=== PATIENT | male | born 1950 | race Caucasian/White ===

== ENCOUNTER 2023-10-18 14:21 | Outpatient (AMB) | payer MEDICARE, SELFPAY ==
--- NOTE | 2023-10-18 14:27 | HO.NEPHOV_ITS ---
HPI HPI Comments History of Present Illness Details Justin was seen in follow-up of his chronic kidney disease and hypertension. He has not had any gout exacerbations. He does not have any nausea, vomiting or diarrhea, chest pain, shortness of breath, proximal noc turnal dyspnea, orthopnea, hematuria or pedal edema. He does not take any excessive nonsteroidal anti-inflammatory medications. His blood pressure has been at goal. He does not have any new active complaints at the time of this office visit. His renal functions have been stable. [facility] Medical History (Updated 10/31/23 @ 22:17 by Dewayne Aguilera MD) Gout Hypertension Chronic kidney disease, stage 3a Surgical History (Updated 10/18/23 @ 14:34 by Shelia Harrison MA) Hx of cholecystectomy Family History Father Liver cancer Social History (Updated 10/18/23 @ 14:34 by Shelia Harrison MA) Alcohol intake: current Comment: Socially Patient Tobacco Use Status: Former Tobacco user Vital Signs 10/18/23 14:28 Height 6 ft 3 in Weight 247 lb 4 oz BMI 30.9 BP 130/80 Blood Pressure Location Lt brachial Position Sitting Pulse 59 Pulse Source Pulse Oximeter Pulse Oximetry (%) 98 Oxygen Delivery Method Room Air Physical Exam Vital Signs: Last Vital Signs Pulse 59 10/18/23 14:28 BP 130/80 10/18/23 14:28 Pulse Ox 98 10/18/23 14:28 Oxygen Delivery Method Room Air 10/18/23 14:28 BMI result Body Mass Index 30.9 Const General: comfortable and no acute distress Orientation/consciousness: patient oriented x3 HEENT Head: Yes normocephalic Mouth: Normal oral and palatal mucosa present Eyes EOM: EOMs intact bilaterally Neck Neck: Yes supple Resp Auscultation: clear to auscultation bilaterally Cardio Jugular venous distension: no JVD Rate: regular rate GI Palpation (GI): Soft to palpation Auscultation: normal bowel sounds General: Yes no CVA tenderness Back/Spine/Pelvis Back: no CVA tenderness Skin General skin exam: no rashes or lesions noted Neuro General: patient oriented x3 and moves all extremities Extrem General: Yes no pedal edema Assessment & Plan Assessment & Plan (1) CKD (chronic kidney disease) stage 3, GFR 30-59 ml/min: Code(s): N18.30 - Chronic kidney disease, stage 3 unspecified Qualifiers: Chronic kidney disease stage 3 subtype: stage 3a (GFR 45-59) Qualified Code(s): N18.31 - Chronic kidney disease, stage 3a (2) Hypertension: Code(s): I10 - Essential (primary) hypertension Qualifiers: Hypertension type: primary hypertension Qualified Code(s): I10 - Essential (primary) hypertension Plan Justin has mild CKD most likely due to ATN in the past. He is not taking any nonsteroidal anti-inflammatories. He is on NIKKI-inhibitor. His renal functions have been stable. His blood pressure has been at goal. He tries to avoid nonsteroidal anti-inflammatories. He maintains good hydration. I did not make any medication changes today. All questions answered. Follow-up blood work ordered and follow-up given Orders: Orders Electrolytes 10/18/23 N18.30 - Chronic kidney disease, stage 3 unspecified Uric Acid 10/18/23 N18.30 - Chronic kidney disease, stage 3 unspecified Blood Urea Nitrogen 10/18/23 N18.30 - Chronic kidney disease, stage 3 unspecified Creatinine 10/18/23 N18.30 - Chronic kidney disease, stage 3 unspecified Coding Level of Care Code Est Pt Level 3 (28902) Diagnoses Stage 3a chronic kidney disease N18.31 Chronic kidney disease stage 3 subtype: stage 3a (GFR 45-59) Primary hypertension I10 Hypertension type: primary hypertension Results Reviewed Nephrology Results: No Data to Display
[2023-10-18 14:28] VITALS: BP 130/80; PULSE 59; O2SAT 98; BMI 30.9
== END 2023-10-18 15:03 | disposition home or self-care (01) ==
PROVIDERS: PCP Internal Medicine; Visit Provider Internal Medicine Nephrology
DX: N18.31 Chronic kidney disease, stage 3a (principal); I10 Essential (primary) hypertension
CPT/HCPCS: 99213

== ENCOUNTER → 2023-10-18 14:21 | Outpatient (BNVA) | payer MEDICARE, SELFPAY | PROVIDERS: PCP Internal Medicine; Visit Provider Internal Medicine Nephrology | DX: I12.9 Hypertensive chronic kidney disease with stage 1 through stage 4 chronic kidney disease, or unspecified chronic kidney disease (principal); N18.31 Chronic kidney disease, stage 3a | CPT/HCPCS: 99212 ==

== ENCOUNTER 2024-07-24 14:16 | Outpatient (REF) | payer MEDICARE, SELFPAY ==
[2024-07-24 17:33] LABS: Appearance Urine Clear; Color Urine Yellow; Glucose Urine UA Negative (Negative); Leukocyte Esterase Urine Negative (Negative); Nitrite Urine Negative (Negative); Urine Blood Negative (Negative); Urine Ketones Negative (Negative); Urine Protein Negative (Neg-Trace)
[2024-07-24 17:48] LABS: MANUAL DIFF FLAG NO
[2024-07-24 18:04] LABS: Basophils Absolute Auto 0.1 X10*3/uL (0.0-0.2); Basophils Percent Auto 1.4 % (0-2); Eosinophils Absolute Auto 0.1 X10*3/uL (0.0-0.4); Hematocrit 45.9 % (42.0-52.0); Hemoglobin 15.7 g/dl (14.0-18.0); Imm Gran Abs Auto 0.01 X10*3/uL (0.00-0.03); Imm Gran Pct Auto 0.2 % (0.0-0.4); Lymphocytes Absolute Auto 0.9 X10*3/uL (1.2-4.9); Lymphocytes Percent Auto 21.7 % (20-40); Mean Corpuscular HGB Conc 34.2 g/dl (31.0-36.0); Mean Corpuscular Volume 93.7 fL (80.0-98.0); Mean Platelet Volume 11.6 fL (9.4-12.4); Monocytes Absolute Auto 0.5 X10*3/uL (0.1-1.2); Neutrophils Absolute Auto 2.7 x10*3/uL (2.0-8.3); Neutrophils Percent Auto 61.7 % (45-73); Platelet Count 143 X10*3/uL (160-400); Red Cell Distribution Width 13.2 % (11.0-16.0); White Blood Count 4.3 X10*3/uL (4.8-10.8)
[2024-07-24 18:33] LABS: Anion Gap 11 (12-20); Blood Urea Nitrogen 17 mg/dL (9-16); Calcium 9.4 mg/dL (8.4-10.2); Carbon Dioxide 27 mmol/L (22-29); Chloride 106 mmol/L (96-108); Estimated Glomerular Filt Rate > 60; Potassium 4.6 mmol/L (3.3-5.1); Sodium 139 mmol/L (135-145); Uric Acid 5.7 mg/dL (3.4-7.0)
[2024-07-24 18:51] LABS: Creatinine Urine 61.57 mg/dL; Total Protein Urine Random < 7 mg/dL (<12)
== END 2024-07-24 14:17 | disposition home or self-care (01) ==
LOC: HO.HKASLDS 14:16
PROVIDERS: Visit Provider Internal Medicine Nephrology
DX: N18.30 Chronic kidney disease, stage 3 unspecified (principal)
CPT/HCPCS: 36415; 80051; 81003; 82310; 82565; 82570; 84156; 84520; 84550; 85025

== ENCOUNTER 2024-07-26 13:19 | Outpatient (AMB) | payer MEDICARE, SELFPAY ==
--- NOTE | 2024-07-26 13:22 | HO.NEPHOV ---
Vital Signs 07/26/24 13:36 Height 6 ft 3 in Weight 244 lb BMI 30.5 BP 120/68 Blood Pressure Location Lt brachial Position Sitting Pulse 61 Pulse Source Pulse Oximeter Pulse Oximetry (%) 96 Oxygen Delivery Method Room Air Intake Visit Reasons: 8M follow up- LVM Mortgage Servicing Specialist Required: No Accompanied by: Self / Same As Patient Allergies No Known Allergies Allergy (Verified 07/26/24 13:37) HPI Comments Details: Justin was seen in follow-up of his chronic kidney disease and hypertension. He has not had any gout exacerbations. He does not have any nausea, vomiting or diarrhea, chest pain, shortness of breath, proximal nocturnal dyspnea, orthopnea, hematuria or pedal edema. He does not take any excessive nonsteroidal anti-inflammatory medications. His blood pressure has been at goal. He does not have any new active complaints at the time of this office visit. He has B/L hearing aids now. His renal functions have been stable. [facility] Medical History (Updated 10/31/23 @ 22:17 by Dewanye Aguilera MD) Gout Hypertension Chronic kidney disease, stage 3a Surgical History Hx of cholecystectomy Family History Father Liver cancer Social History Alcohol intake: current Comment: Socially Patient Tobacco Use Status: Former Tobacco user Review of Systems Const All systems reviewed & are unremarkable except as noted in HPI and below Physical Exam Vital Signs: Last Vital Signs Pulse 61 07/26/24 13:36 BP 120/68 07/26/24 13:36 Pulse Ox 96 07/26/24 13:36 Oxygen Delivery Method Room Air 07/26/24 13:36 BMI result Body Mass Index 30.5 Const General: comfortable and no acute distress Orientation/consciousness: patient oriented x3 HEENT Head: Yes normocephalic Mouth: Normal oral and palatal mucosa present Neck Neck: Yes supple Resp Auscultation: clear to auscultation bilaterally Cardio Jugular venous distension: no JVD Rate: regular rate GI Palpation (GI): Soft to palpation Auscultation: normal bowel sounds General: Yes no CVA tenderness Back/Spine/Pelvis Back: no CVA tenderness Skin General skin exam: no rashes or lesions noted Neuro General: patient oriented x3 and moves all extremities Extrem General: Yes no pedal edema Results Reviewed Nephrology Results: Hgb 15.7 g/dl (14.0-18.0) 07/24/24 WBC 4.3 X10*3/uL (4.8-10.8) L 07/24/24 Plt Count 143 X10*3/uL (160-400) L 07/24/24 Sodium 139 mmol/L (135-145) 07/24/24 Potassium 4.6 mmol/L (3.3-5.1) 07/24/24 Chloride 106 mmol/L (96-108) 07/24/24 Carbon Dioxide 27 mmol/L (22-29) 07/24/24 BUN 17 mg/dL (9-16) H 07/24/24 Creatinine 1.11 mg/dL (0.5-1.4) 07/24/24 Calcium 9.4 mg/dL (8.4-10.2) 07/24/24 Urine Protein Negative mg/dL (Neg-Trace) 07/24/24 Urine Creatinine 61.57 mg/dL 07/24/24 Protein/Creatinin Ratio TNP 07/24/24 Assessment & Plan Assessment & Plan (1) CKD (chronic kidney disease) stage 3, GFR 30-59 ml/min: Code(s): N18.30 - Chronic kidney disease, stage 3 unspecified Category: Medical Qualifiers: Chronic kidney disease stage 3 subtype: stage 3a (GFR 45-59) Qualified Code(s): N18.31 - Chronic kidney disease, stage 3a (2) Hypertension: Code(s): I10 - Essential (primary) hypertension Category: Medical Qualifiers: Hypertension type: primary hypertension Qualified Code(s): I10 - Essential (primary) hypertension Plan Justin has mild CKD most likely due to ATN in the past. He is not taking any nonsteroidal anti-inflammatories. He is on NIKKI-inhibitor. His renal functions have been stable. His blood pressure has been at goal. He tries to avoid nonsteroidal anti-inflammatories. He maintains good hydration. I did not make any medication changes today. All questions answered. Follow-up blood work ordered including uric acid and follow-up appointment given in 6 months Orders: Orders Uric Acid 1 Year I10 - Essential (primary) hypertension, N18.31 - Chronic kidney disease, stage 3a Creatinine 1 Year I10 - Essential (primary) hypertension, N18.31 - Chronic kidney disease, stage 3a Blood Urea Nitrogen 1 Year I10 - Essential (primary) hypertension, N18.31 - Chronic kidney disease, stage 3a Electrolytes 1 Year I10 - Essential (primary) hypertension, N18.31 - Chronic kidney disease, stage 3a Coding Level of Care Code Est Pt Level 4 (29721) Diagnoses Stage 3a chronic kidney disease N18.31 Chronic kidney disease stage 3 subtype: stage 3a (GFR 45-59) Primary hypertension I10 Hypertension type: primary hypertension
[2024-07-26 13:36] VITALS: BP 120/68; PULSE 61; O2SAT 96; BMI 30.5
== END 2024-07-26 13:50 | disposition home or self-care (01) ==
PROVIDERS: PCP Internal Medicine; Visit Provider Internal Medicine Nephrology
DX: N18.31 Chronic kidney disease, stage 3a (principal); I10 Essential (primary) hypertension
CPT/HCPCS: 99214

== ENCOUNTER → 2024-07-26 13:19 | Outpatient (BNVA) | payer MEDICARE, SELFPAY | PROVIDERS: PCP Internal Medicine; Visit Provider Internal Medicine Nephrology | DX: I12.9 Hypertensive chronic kidney disease with stage 1 through stage 4 chronic kidney disease, or unspecified chronic kidney disease (principal); N18.31 Chronic kidney disease, stage 3a | CPT/HCPCS: 99212 ==

== ENCOUNTER 2025-07-18 14:14 | Outpatient (REF) | payer MEDICARE, SELFPAY ==
--- OUTSIDE RECORDS SUMMARY | 2025-07-18 15:32 | XMS_ITS ---
Author Name [facility] Organization Unknown Care Team Organization Name Specialty Phone Email Start Date End [facility]
--- OUTSIDE RECORDS SUMMARY | 2025-07-18 15:32 | XMS_ITS | Clinical Summary ---
Author Organization [facility] Address [address] [place] [address] Care Team Providers Care Wilderness Guide Name Role Phone Unavailable Primary Care Provider Unavailabl e Social History Tobacco Use Types Packs/Day Years Used Date Smoking Tobacco: Never Assessed Sex and Gender Information Value Date Recorded Sex Assigned at Not on file Legal Sex Male 5:08 PM EDT Gender Identity Not on file Sexual Orientation Not on file Plan of Treatment Health Maintenance Due Date Last Done Comments Advance Care Planning 1950 Hepatitis C Virus Screening 1950 DTaP/Tdap/Td Vaccines (1 - Tdap) 1971 Pneumococcal Vaccines 50+ (1 of 1 - PCV) 2002 Zoster (Shingles) Vaccine (1 of 2) 2002 COVID-19 Vaccine ( - 2023-2 5 season) 2025 RSV Vaccine 60 years and old er and Patients (1 - 1-dose 75+ series) 2027 Hepatitis B Vaccines Aged Out No long er eligible based on patient's age to complete this topic
--- OUTSIDE RECORDS SUMMARY | 2025-07-18 15:32 | XMS_ITS | Clinical Summary ---
Author Organization [facility] Address [address] [facility] [address] [place] [address] Phone Care Team Providers Care Respiratory Therapist Name Role Phone Nemo Davis Primary Care Provider Allergies No known active allergies Medications Multiple Vitamin (MULTIVITAMIN ADULT PO) Take 1 tablet by mouth 1 (one) time each day Active atorvastatin (LIPITOR) 20 MG tablet Take 1 tablet by mouth 1 (one) time each day 1 Active cetirizine (ZyrTEC) 10 MG tablet Take 1 tablet by mouth 1 (one) time each day Active lisinopril-hydr oCHLOROthiazide (PRINZIDE,ZESTO RETIC) 20-25 MG per tablet Take 0.5 tablets by mouth 1 (one) time each day Active cimetidine (TAGAMET) 200 MG tablet Take 200 mg by mouth 1 (one) time each day Active allopurinol (ZYLOPRIM) 100 MG tablet TAKE 1 TABLET BY MOUTH EVERY DAY START TAKING ALONG WITH COLCHICINE ONCE GOUT FLARE UP RESOLVES 2 Active colchicine 0.6 MG tablet PLEASE SEE ATTACHED FOR DETAILED DIRECTIONS 2 Active fluticasone (FLONASE) 50 MCG/ACT nasal spray USE 1 SPRAY IN EACH NOSTRIL TWICE A DAY 2 Active lisinopril 20 MG tablet TAKE 1 TABLET BY MOUTH EVERY DAY. DISCONTINUE LISINOPRIL HCTZ COMBO 2 Active Active Problems Problem Noted Date Diagnosed Date Gout associated problem 11/11/2022 Ex-cigarette smoker 11/10/2021 Overview (11/10/2021): 15 pack years. Quit in the mid Posterior rhinorrhea 11/10/2021 Chronic kidney disease stage 3A 11/10/2021 Hypertension 11/10/2021 Acute nontraumatic kidney injury 04/07/2021 Stage 3a chronic kidney disease 04/07/2021 Essential hypertension 04/07/2021 Immunizations Immunization Administration Dates Next Due Influenza Whole 09/30/2020 Influenza, Unspecified 09/04/2014,09/09/2011 Pfizer SARS-COV-2 09/04/2021,02/18/2021,01/29/20 21 Pneumococcal Conjugate 13-Valent 01/04/2019 Tdap 03/27/2014 Family History Relation Status Comments Father Mother Alive Social History Tobacco Use Types Packs/Day Years Used Date Smoking Tobacco: Former Cigarettes Smokeless Tobacco: Former Tobacco Cessation:Counseling Given: Not Answered Comments:Smoking History Info:Every day Alcohol Use Standard Drinks/Week Comments No 0 (1 standard drink = 0.6 oz pur e alcohol) Sex and Gender Information Value Date Recorded Sex Assigned at Not on file Legal Sex Male 4:43 PM EST Gender Identity Not on file Sexual Orientation Not on file Last Filed Vital Signs Vital Sign Reading Time Taken Comments Blood Pressure 124/80 11/11/2022 3:14 PM EST Pulse 62 11/11/2022 3:14 PM EST Temperature - - Respiratory Rate - - Oxygen Saturation 98% 11/11/2022 3:14 PM EST Inhaled Oxygen Concentration - - Weight 112 kg (246 lb 3.2 oz) 11/11/2022 3:14 PM EST Height 190.5 cm (6' 3 ) 02/14/2020 12:00 PM EDT Body Mass Index 30.77 02/14/2020 12:00 PM EDT Plan of Treatment Health Maintenance Due Date Last Done Comments Colorectal Cancer Screening: Annual FOBT 2001 Colorectal Cancer Screening: Colonoscopy 2001 Colorectal Cancer Screening: Sigmoidoscopy 2001 Pneumococcal Vaccine: 50+ Years (2 of 2 - PPSV23, PCV20, or PCV21) 2019 01/04/2019 Influenza Vaccine (#1) 2025 0, 09/04/2014, 09/09/2011 Pneumococcal Vaccine: Peds ( 0 to 5 Years) and At-Risk Patients (6 to 49 Years) Discontinued 01/04/2019 Hepatitis B Vaccine Aged Out No longe r eligible based on patient's age to complete this topic Insurance Care Teams Respiratory Therapist Relationship Specialty Start Date End Date Nemo Davis [address] [place] [address] PCP - General 11/24/20
[2025-07-18 18:30] LABS: Anion Gap 13 (12-20); Blood Urea Nitrogen 19 mg/dL (9-16); Carbon Dioxide 28 mmol/L (22-29); Chloride 105 mmol/L (96-108); Estimated Glomerular Filt Rate 52; Potassium 4.8 mmol/L (3.3-5.1); Sodium 141 mmol/L (135-145); Uric Acid 5.9 mg/dL (3.4-7.0)
== END 2025-07-18 14:15 | disposition home or self-care (01) ==
LOC: HO.HKASLDS 14:14
PROVIDERS: Visit Provider Internal Medicine Nephrology
DX: I12.9 Hypertensive chronic kidney disease with stage 1 through stage 4 chronic kidney disease, or unspecified chronic kidney disease (principal); N18.31 Chronic kidney disease, stage 3a
CPT/HCPCS: 36415; 80051; 82565; 84520; 84550

== ENCOUNTER 2025-07-25 13:17 | Outpatient (AMB) | payer MEDICARE, SELFPAY ==
--- NOTE | 2025-07-25 13:25 | HO.NEPHOV_ITS ---
Vital Signs 07/25/25 13:35 Height 6 ft 3 in Weight 243 lb 4 oz BMI 30.4 BP 126/70 Blood Pressure Location Lt brachial Position Sitting Pulse 70 Pulse Source Pulse Oximeter Pulse Oximetry (%) 95 Oxygen Delivery Method Room Air Intake Visit Reasons: 1yr follow up-Conf Education Administrative Assistant Required: No Accompanied by: Self / Same As Patient Allergies No Known Allergies Allergy (Verified 07/25/25 13:35) HPI Comments Details: Justin was seen in follow-up of his chronic kidney disease and hypertension. He has not had any gout exacerbations. He does not have any nausea, vomiting or diarrhea, chest pain, shortness of breath, proximal nocturnal dyspnea, orthopnea, hematuria or pedal edema. He does not take any excessive nonsteroidal anti-inflammatory medications. His blood pressure has been at goal. He does not have any new active complaints at the time of this office vi sit. He has B/L hearing aids now. His renal functions have been stable. His blood sugar has been running high. [facility] Medical History (Updated 10/31/23 @ 22:17 by Dewayne Aguilera MD) Gout Hypertension Chronic kidney disease, stage 3a Surgical History Hx of cholecystectomy Family History Father Liver cancer Social History Alcohol intake: current Comment: Socially Patient Tobacco Use Status: Former Tobacco user Review of Systems Const All systems reviewed & are unremarkable except as noted in HPI and below Physical Exam Const General: comfortable and no acute distress Orientation/consciousness: patient oriented x3 HEENT Head: Yes normocephalic Mouth: Normal oral and palatal mucosa present Neck Neck: Yes supple Resp Auscultation: clear to auscultation bilaterally Cardio Jugular venous distension: no JVD Rate: regular rate GI Palpation (GI): Soft to palpation Auscultation: normal bowel sounds General: Yes no CVA tenderness Back/Spine/Pelvis Back: no CVA tenderness Skin General skin exam: no rashes or lesions noted Neuro General: patient oriented x3 and moves all extremities Extrem General: Yes no pedal edema Results Reviewed Nephrology Results: Sodium, (135-145) 141 mmol/L 07/18/25 Potassium, (3.3-5.1) 4.8 mmol/L 07/18/25 Chloride, (96-108) 105 mmol/L 07/18/25 Carbon Dioxide, (22-29) 28 mmol/L 07/18/25 BUN, (9-16) 19 mg/dL H 07/18/25 Creatinine, (0.5-1.4) 1.34 mg/dL 07/18/25 Urine Protein, (Neg-Trace) Negative mg/dL 07/24/24 Protein/Creatinin Ratio TNP 07/24/24 Assessment & Plan Assessment & Plan (1) CKD (chronic kidney disease) stage 3, GFR 30-59 ml/min: Code(s): N18.30 - Chronic kidney disease, stage 3 unspecified Category: Medical Qualifiers: Chronic kidney disease stage 3 subtype: stage 3a (GFR 45-59) Qualified Code(s): N18.31 - Chronic kidney disease, stage 3a (2) Hypertension: Code(s): I10 - Essential (primary) hypertension Category: Medical Qualifiers: Hypertension type: primary hypertension Qualified Code(s): I10 - Essential (primary) hypertension Plan Justin has mild CKD most likely due to ATN in the past. He is not taking any nonsteroidal anti-inflammatories. He is on NIKKI-inhibitor. His renal functions have been stable. Ideally he should be on Jardiance 10 mg daily given high serum creatinine and high blood sugar . His blood pressure has been at goal. He tries to avoid nonsteroidal anti-inflammatories. He maintains good hydration. I did not make any medication changes today. All questions answered. Follow-up blood work ordered including uric acid and follow-up appointment given in 12 months Orders: Orders Calcium 1 Year I10 - Essential (primary) hypertension, N18.31 - Chronic kidney disease, stage 3a Uric Acid 1 Year I10 - Essential (primary) hypertension, N18.31 - Chronic kidney disease, stage 3a Electrolytes 1 Year I10 - Essential (primary) hypertension, N18.31 - Chronic kidney disease, stage 3a Blood Urea Nitrogen 1 Year I10 - Essential (primary) hypertension, N18.31 - Chronic kidney disease, stage 3a Creatinine 1 Year I10 - Essential (primary) hypertension, N18.31 - Chronic kidney disease, stage 3a Protein Creatinine Ratio, Ur 1 Year I10 - Essential (primary) hypertension, N18.31 - Chronic kidney disease, stage 3a Coding Level of Care Code Est Pt Level 4 (81799) Diagnoses Stage 3a chronic kidney disease N18.31 Chronic kidney disease stage 3 subtype: stage 3a (GFR 45-59) Primary hypertension I10 Hypertension type: primary hypertension
[2025-07-25 13:35] VITALS: BP 126/70; PULSE 70; O2SAT 95; BMI 30.4
--- OUTSIDE RECORDS SUMMARY | 2025-07-25 17:19 | XMS_ITS | Clinical Summary ---
Author Organization [facility] Address [address] [place] [address] Care Team Providers Care Game Advisor Name Role Phone Unavailable Primary Care Provider [...]
--- OUTSIDE RECORDS SUMMARY | 2025-07-25 17:19 | XMS_ITS | Clinical Summary ---
Author Organization [facility] Address [address] [facility] [address] [place] [address] Phone Care Team Providers Care Otm Consultant Name Role Phone Nemo Davis Primary Care [...] to complete this topic Insurance Care Teams Otm Consultant Relationship Specialty Start Date End Date Nemo Davis [address] [place] [address] PCP - General 11/24/20
== END 2025-07-25 13:53 | disposition home or self-care (01) ==
LOC: HO.HKAS 13:18
PROVIDERS: PCP Internal Medicine; Visit Provider Internal Medicine Nephrology
DX: N18.31 Chronic kidney disease, stage 3a (principal); I10 Essential (primary) hypertension
CPT/HCPCS: 99214

== ENCOUNTER → 2025-07-25 13:17 | Outpatient (BNVA) | payer MEDICARE, SELFPAY | PROVIDERS: PCP Internal Medicine; Visit Provider Internal Medicine Nephrology | DX: N18.31 Chronic kidney disease, stage 3a (principal); I10 Essential (primary) hypertension | CPT/HCPCS: 99212 ==